=== PATIENT | female | born 1975 | race African-American/Black ===

== ENCOUNTER 2016-11-12 03:40 | Observation (INO) ==
[2016-11-12] MEDS ORDERED: ALUM/MAG/SIMETH/LIDO VISC 1:1 30 ML BOTTLE PO STA (04:45)
[2016-11-12] MEDS ORDERED: MORPHINE 2 MG/1 ML SYRINGE IV STA (04:45)
[2016-11-12] MEDS ORDERED: ASPIRIN 325 MG TABLET PO STA (04:45)
[2016-11-12] MEDS ORDERED: ONDANSETRON 4 MG/2 ML VIAL IV STA (04:45)
[2016-11-12] MEDS ORDERED: NITROGLYCERIN 2% OINT 1 INCH/GM PACK TOP STA (04:45)
[2016-11-12] MEDS ORDERED: KETOROLAC 30 MG/1 ML VIAL IV STA (04:45)
--- NOTE | 2016-11-12 05:03 | Emergency Department Note ---
Margarita Silva Emily, am scribing for, and in the presence of, Kalen Davenport MD 04: 52. Issac Silva Charles R, MD, personally performed the services described in this documentation, ascribed by Shasha Avila in my presence, and it is both accurate and complete 503 . Arrival - Arrival Chief Complaint: Chest Pain Stated Complaint: chest pain ED Nursing Triage Note: Patient to triage with c/o chest pain that started tonight. Patient states the pain is on the right side of her chest and is worse when she takes a deep breath. Denies SOB, N/V. Mode of Arrival: Ambulatory Limitations: No Limitations Source: Patient - History of Present Illness HPI Narrative: Pt is a 40 y/o female who came to ED with c/o right sided chest pain that started this morning. Pt reports having pain with deep inspiration, lifting right arm, and exertion but denies SOB or N/V. 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 Family notes bilateral knee swelling with travel. Onset (ago): hour(s) Consistency: constant Severity: mild, moderate Severity scale (1-10): 4 Quality: aching Date of Last Menstrual Period: "currently on" Allergies/Adverse Reactions: Allergies Allergy/AdvReac Type Severity Reaction Status Date / Time No Known Allergies Allergy Unverified 11/12/16 03:52 Review of System - Review of System 12 point system: reviewed and no additional remarkable complaints except as stated - Review of System Constitutional: Absent: fever Respiratory: Present: other (pain with deep breath). Absent: respiratory distress Cardiovascular: Present: chest pain Medical,Surgical,& Family Hx - Medical History Cardio: History of: Hypertension - Surgical History Surgical History: noncontributory - Family History Family History: noncontributory - Social History Smoking Status: Never smoker Frequency of Alcohol Use: None Type of Drug Use: None Marital Status: Single Functional capacity: independent ambulation Exam Vital Signs: Vital Signs Temperature 98.4 F 11/12/16 03:42 Pulse Rate 71 11/12/16 03:42 Respiratory Rate 20 11/12/16 03:42 Blood Pressure 181/117 11/12/16 03:42 O2 Sat by Pulse Oximetry 396 H 11/12/16 03:42 - General General appearance: alert, in no apparent distress - Head Head exam: Present: atraumatic, normocephalic - Eye Eye exam: Present: PERRL, EOMI - ENT ENT exam: Present: mucous membranes moist. Absent: mucous membranes dry - Neck Neck exam: Present: full ROM. Absent: tenderness - Chest Chest inspection: Present: symmetric chest wall rise, tenderness (reproducible right sided chest pain, prominent at pectoralis muscle) - Respiratory Respiratory exam: Present: normal lung sounds bilaterally. Absent: respiratory distress - Cardiovascular Cardiovascular exam: Present: regular rate, normal rhythm, normal heart sounds - Abdominal Exam Abdominal exam: Present: soft. Absent: tenderness - Extremities Exam Extremities exam: Present: full ROM. Absent: tenderness, pedal edema - Neurological Exam Neurological exam: Present: alert, oriented X3, CN II-XII intact. Absent: motor sensory deficit - Psychiatric Psychiatric exam: Present: normal affect, normal mood - Skin Skin exam: Present: warm, dry Course - Reevaluation(s) Reevaluation #1: Patient still hurts in her chest on the right side. Patient states pain is worse when she moves around but pain is also reproducible is a negative cardiac workup Time: 05:56 - Consultations Consultation #1: Hospitalist will admit patient Time: 05:56 Results - Labs CBC & BMP: 11/12/16 04:55 11/12/16 04:55 Lab Results: I have reviewed the patients labs Labs: Laboratory Tests 11/12/16 04:55 MCV 85.1 L MPV 12.2 H Laboratory Tests 11/12/16 11/12/16 04:55 04:55 Sodium 137 Potassium 3.3 L Chloride 104 Carbon Dioxide 27 Calculated Osmolality 272.8 L Globulin 3.7 H Albumin/Globulin Ratio 1.0 L Lipase 66.0 L Laboratory Tests 11/12/16 04:55 Troponin I < 0.015 Disposition Clinical Impression: Hypertensive urgency, Chest pain, Atypical chest pain Case discussed with: patient Disposition: Still a Patient Condition: Stable Time of Disposition: 05:57
[2016-11-12] MEDS ORDERED: KETOROLAC 30 MG/1 ML VIAL ONE (05:06)
[2016-11-12] MEDS ORDERED: ONDANSETRON 4 MG/2 ML VIAL ONE (05:06)
[2016-11-12] MEDS ORDERED: NITROGLYCERIN 2% OINT 1 INCH/GM PACK TOP ONE (05:06)
[2016-11-12] MEDS ORDERED: ASPIRIN 325 MG TABLET ONE (05:06)
[2016-11-12] MEDS ORDERED: MORPHINE 2 MG/1 ML SYRINGE ONE (05:06)
[2016-11-12] MEDS ORDERED: ALUM/MAG/SIMETH/LIDO VISC 1:1 30 ML BOTTLE PO ONE (05:07)
[2016-11-12 05:09] LABS: Basophils % 0.3 % (0.0-0.8); Eosinophils # 0.2 10*3/uL (0.0-0.87); Eosinophils % 2.7 % (0.00-10.9); Hematocrit 37.8 VOL% (35.7-47.0); Hemoglobin 13.2 GM/DL (12.0-16.0); Immature Granulocytes % 0.3 %; Immature Granulocytes Absolute 0.02 #; Lymphocytes # 2.8 10*3/uL (1.4-4.0); Lymphocytes % 36.9 % (21.3-54.2); Mean Corpuscular HGB Conc 34.9 GM/DL (32-36); Mean Corpuscular Hemoglobin 30 PG (27-34); Mean Corpuscular Volume 85.1 FL (87-102); Mean Platelet Volume 12.2 FL (9.6-12.0); Monocytes # 0.4 10*3/uL (0.11-0.8); Neutrophils # 4.2 10*3/uL (1.4-7.4); Neutrophils % 54.8 % (38.7-73.9); Platelet Count 190 T/CUMM (130-400); Red Blood Count 4.44 MC/CUMM (3.8-5.5); White Blood Count 7.7 T/CUMM (4-12)
[2016-11-12 05:28] LABS: Magnesium 2.3 MG/DL (1.8-2.4)
[2016-11-12 05:35] LABS: Alanine Aminotransferase 16 U/L (13-56); Albumin 3.8 G/DL (3.4-5.0); Alkaline Phosphatase 86 U/L (45-117); Aspartate Amino Transferase 21 U/L (0-37); Bilirubin,Total < 0.39 MG/DL (0.2-1.0); Blood Urea Nitrogen 13 MG/DL (7-18); Calcium 8.8 MG/DL (8.5-10.1); Glucose 95 MG/DL (74-106); Osmolality,Calculated 272.8 MOS/KG (273-304); Potassium 3.3 MMOL/L (3.5-5.1); Sodium 137 MMOL/L (136-145); Total Protein 7.5 G/DL (6.4-8.3)
[2016-11-12] MEDS ORDERED: POTASSIUM CHLORIDE 20 MEQ TABLET PO STA (05:51)
[2016-11-12] MEDS ORDERED: hydrALAZINE 20 MG/1 ML VIAL IV STA (05:56)
[2016-11-12] MEDS ORDERED: ENOXAPARIN 100 MG/ML SYRINGE SUBCUT STA (05:57)
[2016-11-12] MEDS ORDERED: hydrALAZINE 20 MG/1 ML VIAL ONE (06:19)
[2016-11-12] MEDS ORDERED: ENOXAPARIN 100 MG/ML SYRINGE SUBCUT ONE (06:19)
[2016-11-12] MEDS ORDERED: POTASSIUM CHLORIDE 20 MEQ TABLET PO ONE (06:20)
[2016-11-12] MEDS ORDERED: ACETAMINOPHEN 325 MG TABLET PO PRN (06:28)
[2016-11-12] MEDS ORDERED: ONDANSETRON 4 MG/2 ML VIAL IV PRN (06:28)
[2016-11-12] MEDS ORDERED: ENOXAPARIN 40 MG/0.4 ML SYRINGE SUBCUT SCH (06:30)
--- NOTE | 2016-11-12 06:40 | Hospitalist History & Physical ---
Assessment and Plan (1) Atypical chest pain Status: Acute Assessment and plan: Patient characteristic of in situ pain and associated finding suggested it is not cardiac chest pain and I have explained this to patient. ER physician have offered troponin level series has to be followed up Current Visit: Yes (2) Hypertension Status: Acute Assessment and plan: Patient has stage II hypertension I do not see any urgency or emergency as her pains does not seem to be cardiac to me. Urinalysis pending to see if she has any proteinuria . Due to her severely elevated blood pressure will need to be started on 2 different antihypertensive agents. I will start on losartan and amlodipine. I do not hear any bruit. she also has associated hypokalemia and hyperaldosteronism and need to be considered. I will order renal and aldosterone level that has to be followed up. Current Visit: Yes (3) Hypokalemia Status: Acute Assessment and plan: Patient has received potassium supplement in the ER Current Visit: Yes History of Present Illness Chief complaint: Chest pain History of present illness: Ms. Krishna is a 40 year old female with history of hypertension but has not been taking medications. She was on medication but it was giving her urine frequency so had stopped. She was seen in the ER for chest pain start this morning. Pain is on exertional and located in the right side worse with breathing and movement. No associated fever cough shortness of breath nausea vomiting or diaphoresis. She has reported driving for many hours for work every 2 weeks. In the ER she was had EKG with sinus rhythm without any ST-T changes. Troponin was within normal range repeat troponin series has been ordered by ER physician did d-dimer level was within normal limit. Patient was noted to have elevated blood pressure 181/117. Hydralazine was ordered. She denies any headache dizziness vision changes. No abdominal pain urinary symptoms reported. I was asked to admit the patient Allergies Allergy/AdvReac Type Severity Reaction Status Date / Time No Known Allergies Allergy Unverified 11/12/16 03:52 Medical,Surgical,& Family Hx - Medical History Cardio: History of: Hypertension - Surgical History Additional Surgical History: No history of surgery - Family History Family History: Reports;: Family Stroke (Mother had 2 strokes.) Additional Family History: Father when she was 3-year-old she does not know cause of - Social History Smoking Status: Never smoker Frequency of Alcohol Use: None Type of Drug Use: None 12 point system: reviewed and no additional remarkable complaints except as stated (Mentioned in HPI) Exam - Constitutional Vitals: Period Temp Pulse Resp BP Sys/Estrada Pulse Ox Last 24 Hr 98.4 F-98.4 F 71-71 20-20 181-181/117-117 396 General appearance: over weight - Head Head exam: Present: normal inspection, normocephalic, atraumatic - Eye Eye exam: Present: EOMI. Absent: conjunctival injection, nystagmus Pupils: Present: KAYLEE, normal accommodation - ENT ENT exam: Present: normal exam, normal oropharynx - Neck Neck exam: Present: normal inspection, other (Supple) - Respiratory Respiratory exam: Present: clear to auscultation bilaterally, chest wall tenderness (Tenderness present on chest wall palpation right side). Absent: accessory muscle use, rales, rhonchi - Cardiovascular Cardiovascular exam: Present: regular rate and rhythm. Absent: JVD, tachycardia - GI/Abdominal GI/Abdominal exam: Present: normal bowel sounds, soft. Absent: distended, tenderness - Extremities Exam Extremities exam: Present: normal inspection. Absent: edema - Neurological Exam Neurological exam: Present: alert, oriented X3 - Skin Skin exam: Present: normal color Results - Labs CBC & BMP: 11/12/16 04:55 11/12/16 04:55 Lab Results: I have reviewed the past 24 hour labs
[2016-11-12 06:54] LABS: Apearance,Urine Slightly Hazy (Clear); Bacteria,Urine Occasional /HPF (Few); Bilirubin,Urine Negative (Negative); Blood, Urine Large mg/dL (Negative); Glucose,Urine (UA) Negative (Negative); Ketones,Urine Negative (Negative); Mucus,Urine Occasional /LPF (Occasional); Nitrite,Urine Negative (Negative); Protein,Urine 30 MG/DL; RBC,Urine 102 /HPF (0-4); Squamous Epithelial Cell,Urine Occasional /HPF (0-10); Urine Color Yellow (Yellow); Urine Specific Gravity 1.015 (1.001-1.035); Urine Urobilinogen < 2.0 EU/DL (0.2-1.0); WBC,Urine 11 /HPF (0-6)
[2016-11-12 06:59] LABS: Barbiturates Screen,Urine Negative (Negative); Benzodiazepines Screen,Urine Negative (Negative); Cannabinoid Screen,Urine Negative (Negative); Opiate Screen,Urine Positive (Negative); Phencyclidine Screen,Urine Negative (Negative)
--- NOTE | 2016-11-12 07:29 | EKG Report ---
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
[2016-11-12 08:11] VITALS: BP 115/82
--- NOTE | 2016-11-12 08:19 | EKG Report ---
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
[2016-11-12] MEDS ORDERED: amLODIPine 5 MG TABLET PO SCH (09:00)
[2016-11-12] MEDS ORDERED: PANTOPRAZOLE 40 MG TABLET PO SCH (09:00)
[2016-11-12] MEDS ORDERED: LOSARTAN 50 MG TABLET PO SCH (09:00)
--- NOTE | 2016-11-12 09:05 | XRay Report ---
XR chest 1V portable Indication: Chest pain. Comparison: None. Technique: Portable AP chest was performed. Findings: Heart size is normal. Pulmonary vasculature appears within normal limits. No significant abnormality of the mediastinal contours demonstrated. Lungs are clear for the degree of inspiration.. Bones and soft tissues demonstrate no significant abnormalities. Impression: 1. No evidence of acute pathology. 11/12/2016 8:51 AM PROCEDURE INTERPRETED AT [facility] DEPARTMENT OF RADIOLOGY Final Report Signed by: Dr. Huseyin Linder
--- NOTE | 2016-11-12 10:56 | EKG Report ---
Stationary ECG Study 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
--- NOTE | 2016-11-12 11:00 | Discharge Summary ---
Hospital Course - Hospital Course Hospital Course: Discharge diagnosis: Hypertension Chest pain, noncardiac The patient presented to the hospital for evaluation of some right-sided chest pain. [place] and pulmonary embolism/DVT were ruled out in the emergency room, and she was admitted for reasons that are not clear to me. Blood pressure was elevated. She had apparently been taking some antihypertensives, but discontinued these because she did not like the excess urination. She was started on losartan and amlodipine, and her blood pressure has come down nicely. We will let her go home. Medication reconciliation has been performed. Regular diet. Activity as tolerated. Follow-up with her local physician in [place]. I have given her some paper prescriptions to get filled locally until she can make it back to [place]. This note was completed using [employer] voice recognition software. There may be contact center rep errors as a result. Discharge Plan - Discharge Medications New Losartan [Cozaar] 50 mg PO DAILY #30 tablet amLODIPine [Norvasc] 5 mg PO DAILY #30 tablet No Action Multivitamin [Multivitamins] 1 each PO DAILY - Follow Up or Referral - Forms/Instructions Exam - Constitutional Vitals: Period Temp Pulse Resp BP Sys/Estrada Pulse Ox Last 24 Hr 97.6 F-98.4 F 71-83 16-20 115-181/82-117 97-396 Vital signs are noted above. Heart is regular with no murmur or gallop. Lungs are clear with no rales or wheezes. Abdomen is soft without mass. There is no peripheral edema. She is awake and alert Discharge Results Procedures and tests throughout hospitalization: Pending Orders 11/12/16 Urine Culture Routine 11/12/16 08:35 Aldosterone Routine Renin Activity Routine Labs on day of discharge: Labs from last 24 hours 11/12/16 11/12/16 11/12/16 08:35 06:40 06:40 WBC RBC Hgb Hct MCV MCH MCHC RDW Plt Count MPV Neut % (Auto) Lymph % (Auto) Aiken % (Auto) Eos % (Auto) Baso % (Auto) Neut # (Auto) Lymph # (Auto) Aiken # (Auto) Eos # (Auto) Baso # (Auto) Immature Gran % Nucleated RBC % Immature Gran # Nucleated RBCs # Immature Plt Fraction INR PT Patient/Control Mix D-Dimer, Quantitative Sodium Potassium Chloride Carbon Dioxide Anion Gap BUN Creatinine GFR Calculation BUN/Creatinine Ratio Glucose Calculated Osmolality Calcium Magnesium Total Bilirubin AST ALT Alkaline Phosphatase Troponin I < 0.015 B-Natriuretic Peptide Total Protein Albumin Globulin Albumin/Globulin Ratio Lipase Urine Color Yellow Urine Appearance Slightly hazy Urine pH 6.0 Ur Specific [place] 1.015 Urine Protein 30 Urine Glucose (UA) Negative Urine Ketones Negative Urine Blood Large Urine Nitrate Negative Urine Bilirubin Negative Urine Urobilinogen < 2.0 H Urine Leukocytes Trace Urine RBC 102 Urine WBC 11 Ur Squamous Epith Cells Occasional Urine Bacteria Occasional Urine Mucus Occasional Ur Culture Indicated? Results to follow Urine Opiates Screen Positive H Ur Barbiturates Screen Negative Ur Phencyclidine Scrn Negative U Amphetamine/Methamph Negative U Benzodiazepines Scrn Negative U Cocaine Metab Screen Negative U Cannabinoids Screen Negative 11/12/16 11/12/16 11/12/16 04:55 04:55 04:55 WBC RBC Hgb Hct MCV MCH MCHC RDW Plt Count MPV Neut % (Auto) Lymph % (Auto) Aiken % (Auto) Eos % (Auto) Baso % (Auto) Neut # (Auto) Lymph # (Auto) Aiken # (Auto) Eos # (Auto) Baso # (Auto) Immature Gran % Nucleated RBC % Immature Gran # Nucleated RBCs # Immature Plt Fraction INR 1.0 PT Patient/Control Mix 11.0 D-Dimer, Quantitative Sodium Potassium Chloride Carbon Dioxide Anion Gap BUN Creatinine GFR Calculation BUN/Creatinine Ratio Glucose Calculated Osmolality Calcium Magnesium 2.3 Total Bilirubin AST ALT Alkaline Phosphatase Troponin I B-Natriuretic Peptide 18 Total Protein Albumin Globulin Albumin/Globulin Ratio Lipase 66.0 L Urine Color Urine Appearance Urine pH Ur Specific [place] Urine Protein Urine Glucose (UA) Urine Ketones Urine Blood Urine Nitrate Urine Bilirubin Urine Urobilinogen Urine Leukocytes Urine RBC Urine WBC Ur Squamous Epith Cells Urine Bacteria Urine Mucus Ur Culture Indicated? Urine Opiates Screen Ur Barbiturates Screen Ur Phencyclidine Scrn U Amphetamine/Methamph U Benzodiazepines Scrn U Cocaine Metab Screen U Cannabinoids Screen 11/12/16 11/12/16 11/12/16 04:55 04:55 04:55 WBC 7.7 RBC 4.44 Hgb 13.2 Hct 37.8 MCV 85.1 L MCH 30 MCHC 34.9 RDW 12.0 Plt Count 190 MPV 12.2 H Neut % (Auto) 54.8 Lymph % (Auto) 36.9 Aiken % (Auto) 5.0 Eos % (Auto) 2.7 Baso % (Auto) 0.3 Neut # (Auto) 4.2 Lymph # (Auto) 2.8 Aiken # (Auto) 0.4 Eos # (Auto) 0.2 Baso # (Auto) 0.0 Immature Gran % 0.3 Nucleated RBC % 0.0 Immature Gran # 0.02 Nucleated RBCs # 0.00 Immature Plt Fraction 0.0 INR PT Patient/Control Mix D-Dimer, Quantitative Sodium 137 Potassium 3.3 L Chloride 104 Carbon Dioxide 27 Anion Gap 9.3 BUN 13 Creatinine 0.90 GFR Calculation 103 BUN/Creatinine Ratio 14.00 Glucose 95 Calculated Osmolality 272.8 L Calcium 8.8 Magnesium Total Bilirubin < 0.39 AST 21 ALT 16 Alkaline Phosphatase 86 Troponin I < 0.015 B-Natriuretic Peptide Total Protein 7.5 Albumin 3.8 Globulin 3.7 H Albumin/Globulin Ratio 1.0 L Lipase Urine Color Urine Appearance Urine pH Ur Specific [place] Urine Protein Urine Glucose (UA) Urine Ketones Urine Blood Urine Nitrate Urine Bilirubin Urine Urobilinogen Urine Leukocytes Urine RBC Urine WBC Ur Squamous Epith Cells Urine Bacteria Urine Mucus Ur Culture Indicated? Urine Opiates Screen Ur Barbiturates Screen Ur Phencyclidine Scrn U Amphetamine/Methamph U Benzodiazepines Scrn U Cocaine Metab Screen U Cannabinoids Screen 11/12/16 04:45 WBC RBC Hgb Hct MCV MCH MCHC RDW Plt Count MPV Neut % (Auto) Lymph % (Auto) Aiken % (Auto) Eos % (Auto) Baso % (Auto) Neut # (Auto) Lymph # (Auto) Aiken # (Auto) Eos # (Auto) Baso # (Auto) Immature Gran % Nucleated RBC % Immature Gran # Nucleated RBCs # Immature Plt Fraction INR PT Patient/Control Mix D-Dimer, Quantitative <= 0.5 Sodium Potassium Chloride Carbon Dioxide Anion Gap BUN Creatinine GFR Calculation BUN/Creatinine Ratio Glucose Calculated Osmolality Calcium Magnesium Total Bilirubin AST ALT Alkaline Phosphatase Troponin I B-Natriuretic Peptide Total Protein Albumin Globulin Albumin/Globulin Ratio Lipase Urine Color Urine Appearance Urine pH Ur Specific [place] Urine Protein Urine Glucose (UA) Urine Ketones Urine Blood Urine Nitrate Urine Bilirubin Urine Urobilinogen Urine Leukocytes Urine RBC Urine WBC Ur Squamous Epith Cells Urine Bacteria Urine Mucus Ur Culture Indicated? Urine Opiates Screen Ur Barbiturates Screen Ur Phencyclidine Scrn U Amphetamine/Methamph U Benzodiazepines Scrn U Cocaine Metab Screen U Cannabinoids Screen DS: Provider Date of admission: 11/12/16 06:28 Primary care physician: . No PCP Attending physician on admission: Adarsh Miller MD Consults: 11/12/16 09:11 Consult to Dietitian [CONS] Routine Reason for Dietitian: Other Consult Comment: wt loss without trying, HTN Discharging clinician: Alfie Vital MD Expected date of discharge: 11/12/16
[2016-11-15 14:11] LABS: Renin Activity 0.7 ng/mL/h
== END 2016-11-12 11:49 | disposition home or self-care (01) ==
LOC: N.ED 03:40 → N.EDINP 03:40 → SUATTDRO 06:28 → N.5E 07:04
PROVIDERS: ADMIT Internal Medicine; ATTEND Internal Medicine Geriatric Medicine